=== PATIENT | male | born 1960 | race Two or more races ===

== ENCOUNTER 2022-07-07 19:33 | Emergency (ER) | payer MEDICAID, OTHER ==
[~2022-07-07] VITALS: Ht 188 cm; Wt 140.9 kg
[2022-07-07 20:02] VITALS: BP 149/101
[2022-07-07] MEDS ORDERED: ASPirin 325 MG TAB PO ONE (20:15)
[2022-07-07] MEDS ORDERED: IPRATROPIUM BROM 0.5 MG/2.5ML INH SOL NEB ONE (20:15)
[2022-07-07] MEDS ORDERED: DexAMETHasone INJECTION 10 MG in D5W 5% 50 ML IV ONE (20:15)
[2022-07-07] MEDS ORDERED: ALBUTEROL SULF 2.5 MG/0.5ML(0.5%) NEB SOLN NEB ONE (20:15)
[2022-07-07 21:11] LABS: Albumin 3.5 g/dL (3.4-5.0); Calcium 8.9 mg/dL (8.5-10.1); Potassium 4.1 mmol/L (3.5-5.1)
[2022-07-07 21:14] LABS: BUN/Creatinine Ratio 10.9; Bilirubin, Total 0.7 mg/dL (0.2-1.0); Total Protein 7.5 g/dL (6.4-8.2)
[2022-07-07 21:24] LABS: Basophils # (auto) 0.1 10 ^3/uL (0-0.2); Basophils % (auto) 1.9 % (0.0-2.0); Eosinophils # (auto) 0.1 10 ^3/uL (0-0.8); Eosinophils % (auto) 1.1 % (0.0-7.0); Hematocrit 52.2 % (41.0-53.0); Hemoglobin 16.7 g/dL (13.5-17.5); Lymphocytes # (auto) 1.2 10 ^3/uL (0.4-5.4); Lymphocytes % (auto) 15.4 % (10.0-50.0); Mean Corpuscular Hemoglobin 27.9 pg (28.0-32.0); Mean Corpuscular Hgb Conc. 31.9 g/dL (32.0-36.0); Mean Corpuscular Volume 87.4 fL (80.0-100.0); Monocytes # (auto) 0.5 10 ^3/uL (0-1.3); Monocytes % (auto) 6.8 % (0.0-12.0); Neutrophils # (auto) 5.9 10 ^3/uL (1.6-8.6); Neutrophils % (auto) 74.8 % (37.0-80.0); Nucleated Red Blood Cells % 0.2 %; Red Blood Cells 5.98 10^6/uL (4.5-5.90); Red Cell Distribution Width 15.1 % (11.8-14.3); White Blood Cell 7.8 10^3/uL (4.4-10.8)
[2022-07-08] MEDS ORDERED: OSEL75CA5 PO (01:43)
[2022-07-08] MEDS ORDERED: OSELTAMIVIR 75 MG CAP PO ONE (01:45)
== END 2022-07-08 04:17 | disposition home or self-care (01) ==
LOC: ER 19:33
DX: J10.1 Influenza due to other identified influenza virus with other respiratory manifestations (principal); J44.9 Chronic obstructive pulmonary disease, unspecified; E78.5 Hyperlipidemia, unspecified; I10 Essential (primary) hypertension; Z20.822 Contact with and (suspected) exposure to COVID-19
CPT/HCPCS: 36415; 71045; 80053; 83605; 83735; 83880; 84443; 84484; 85025; 87426; 87804; 93005; 94640; 99285; J1100; J7060; J7644

== ENCOUNTER 2025-08-25 15:22 | Inpatient (IN) | payer MEDICAID ==
[~2025-08-25] VITALS: Ht 188 cm; Wt 129.6 kg
[~2025-08-25 15:22] MED LIST: OSEL75CA5 PO
--- NOTE | 2025-08-25 15:37 | ED.PDOC ---
HPI Comments 65 year old male with PMHx COPD, HTN, HLD, lymphoma, presents to the ED with a chief complaint of chest pain onset 1 day. Patient states he has been experiencing Lt sided chest pain as well as shortness of breath, cough, fever, nausea/vomiting for the past day. Upon ED arrival, BP was 142/98, temperature 99.3 F. Patient describes chest pain as a pressure sensation, rates pain 7/10. Denies hematemesis, dizziness, headache, blurred vision, diarrhea, abdominal pain, dysuria, hematuria. No other symptoms or modifying factors present at this time. Chief Complaint: Chest Pain Time Seen by MD: 15:30 Primary Care Provider: NONE Reviewed Notes: Medications, Allergies Allergies: Coded Allergies: NO KNOWN ALLERGIES (Unverified , 07/08/22) Home Meds Active Scripts Oseltamivir Phosphate (Tamiflu) 75 Mg Cap, 1 CAP PO BID for 5 Days, #10 CAP Prov:LETA BRITT DO 07/08/22 Information Source: Patient, Relative Mode of Arrival: Wheelchair Severity: Moderate Timing: Days Duration: Since onset Prehospital treatment: None Location: Chest (L) Radiation: No Radiation Quality: Pressure Onset: At Rest Cardiac Risk Factors: Hyperlipidemia, HTN PE Risk Factors: None History of: None Modifying Factors: Nothing Associated Signs and Symptoms: SOB, N/V Past Medical History PAST MEDICAL HISTORY: Cancer, COPD, High Lipids, HTN Surgical History: Cholecystectomy Surgical History (Other): RT knee surgery Family History Family History: Reviewed,noncontributory to illness, No family hx of Cancer, No family hx of DM, No family hx of Heart jossy, No family hx of HTN, No family hx ofKidney jossy, No family hx of Liver jossy, No family hx of Lung jossy, No family hx of Stroke Social History Smoker: Non-Smoker Alcohol: Denies ETOH Use Drugs: Denies Drug Use Lives In: Home Constitutional: reports: fever; denies: chills, diaphoresis, fatigue, malaise, sweats, weakness, others EENTM: denies: blurred vision, double vision, ear bleeding, ear discharge, ear drainage, ear pain, ear ringing, eye pain, eye redness, hearing loss, mouth pain, mouth swelling, nasal discharge, nose bleeding, nose congestion, nose pain, photophobia, tearing, throat pain, throat swelling, voice changes, others Respiratory: reports: cough, shortness of breath; denies: hemoptysis, orthopn ea, SOB at rest, SOB with excertion, stridor, wheezing, others Cardiovascular: reports: chest pain; denies: dizzy spells, diaphoresis, Dyspnea on exertion, edema, irregular heart beat, left arm pain, lightheadedness, palpitations, PND, syncope, others Gastrointestinal: reports: nausea, vomiting; denies: abdomen distended, abdominal pain, blood streaked bowels, constipated, diarrhea, dysphagia, difficulty swallowing, hematemesis, melena, poor appetite, poor fluid intake, rectal bleeding, rectal pain, others Genitourinary: denies: burning, dysuria, flank pain, frequency, hematuria, incontinence, penile discharge, penile sore, pain, testicle pain, testicle swelling, urgency, others Neurological: denies: dizziness, fainting, headache, left sided numbness, left sided weakness, numbness, paresthesia, pre-existing deficit, right sided numbness, right sided weakness, seizure, speech problems, tingling, tremors, weakness, others Musculoskeletal: denies: back pain, gout, joint pain, joint swelling, muscle pain, muscle stiffness, neck pain, others Integumetry: denies: bruises, change in color, change in hair/nails, dryness, laceration, lesions, lumps, rash, wounds, others Allergic/Immunocompromised: denies: Difficulty Healing, Frequent Infections, Hives, Itching, others Hematologic/Lymphatic: denies: anemia, blood clots, easy bleeding, easy bruising, swollen glands, others Endocrine: denies: excessive hunger, excessive sweating, excessive thirst, excessive urination, flushing, intolerance to cold, intolerance to heat, unexplained weight gain, unexplained weight loss, others Psychiatric: denies: anxiety, bipolar disorder, depression, hopeless, panic disorder, schizophrenia, sleepless, suicidal, others All Other Systems: Reviewed and Negative Physical Exam General Appearance: Moderate Distress HEENT: Normal ENT Inspection, Pharynx Normal, TMs Normal Neck: Full Range of Motion, Non-Tender, Normal, Normal Inspection Respiratory: Chest Non-Tender, Lungs Clear, No Accessory Muscle Use, No Respiratory Distress, Normal Breath Sounds Cardiovascular: No Edema, No JVD, No Murmur, No Gallop, Normal Peripheral Pulses, Regular Rate/Rhythm Breast Exam: Deferred Gastrointestinal: No Organomegaly, Non Tender, No Pulsatile Mass, Normal Bowel Sounds, Soft Genitalia: Deferred Pelvic: Deferred Rectal: Deferred Extremities: No calf tenderness, Normal capillary refill, Pedal edema Musculoskeletal : Apperance: Normal Neurologic: Alert, 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 Was a procedure done?: No CP Differential Dx Differential Diagnosis: Angina, RI, Pulmonary Embolus Differential Diagnosis: CHF Differential Diagnosis: Myocardial Infarction, Pericarditis X-Ray, Labs, Meds, VS Vital Signs Date Time Temp Pulse Resp B/P (MAP) Pulse Ox O2 Delivery O2 Flow Rate FiO2 08/25/25 16:23 91 08/25/25 15:37 95 08/25/25 15:35 92 Nasal Cannula* 2 28 08/25/25 15:28 95 08/25/25 15:27 99.3 100 18 142/98 88 99.3 Lab Test 08/25/25 16:59 08/25/25 16:00 08/25/25 15:43 Range/Units Troponin I High Sensitivity Pending 8 </=54 ng/L Lactic Acid Level 1.1 0.4-2.0 mmol/L White Blood Count 18.9 H 4.4-10.8 10^3/uL Red Blood Count 5.84 4.5-5.90 10^6/uL Hemoglobin 16.4 13.5-17.5 g/dL Hematocrit 50.4 41.0-53.0 % Mean Corpuscular Volume 86.4 80.0-100.0 fL Mean Corpuscular Hemoglobin 28.2 28.0-32.0 pg Mean Corpuscular Hemoglobin Concent 32.6 32.0-36.0 g/dL Red Cell Distribution Width 16.5 H 11.8-14.3 % Platelet Count 149 140-450 10^3/uL Mean Platelet Volume 9.1 6.9-10.8 fL Neutrophils (%) (Auto) 89.9 H 37.0-80.0 % Lymphocytes (%) (Auto) 4.7 L 10.0-50.0 % Monocytes (%) (Auto) 5.2 0.0-12.0 % Eosinophils (%) (Auto) 0.0 0.0-7.0 % Basophils (%) (Auto) 0.2 0.0-2.0 % Neutrophils # (Auto) 17.0 H 1.6-8.6 10 ^3/uL Lymphocytes # (Auto) 0.9 0.4-5.4 10 ^3/uL Monocytes # (Auto) 1.0 0-1.3 10 ^3/uL Eosinophils # (Auto) 0 0-0.8 10 ^3/uL Basophils # (Auto) 0 0-0.2 10 ^3/uL Nucleated Red Blood Cells 0.0 % Sodium Level 137 136-145 mmol/L Potassium Level 4.3 3.5-5.1 mmol/L Chloride Level 98 98-107 mmol/L Carbon Dioxide Level 28 20-31 mmol/L Anion Gap 11 5-15 Blood Urea Nitrogen 12 9-23 mg/dL Creatinine 0.82 0.700-1.30 mg/dL Glomerular Filtration Rate Calc 98 >90 mL/min BUN/Creatinine Ratio 14.6 10.0-20.0 Serum Glucose 84 74-106 mg/dL Calcium Level 9.4 8.7-10.4 mg/dL B-Type Natriuretic Peptide 43.61 0-100 pg/mL The patient's CBC shows an elevated white blood cell count of 18.9 The rest of the CBC is within normal limits The chemistry panel is within normal limits The BNP is 43.61 The patient was given Lasix 40 mg IV push The 1st troponin level is negative The lactic acid level is 1.1 Chest x-ray shows: IMPRESSION: 1. Minimal change from 07/07/2022 with persistent interstitial prominence. The patient is being admitted at this time A cardiology consult will be obtained. Images Reviewed?: Images reviewed and evaluated by me Time of 1ST Reevaluation: 16:00 Reevaluation 1ST: Unchanged Patient Education/Counseling: Diagnosis, Treatment, Prognosis Family Education/Counseling: Diagnosis, Treatment, Prognosis SEPSIS Sepsis Screen Physician Orders Electrocardigram (08/25/25 15:24) Troponin-I Hs (08/25/25 16:24) Troponin-I Hs (08/25/25 18:24) Electrocardigram (08/25/25 16:24) Electrocardigram (08/25/25 18:24) Chest Portable (08/25/25 15:37) Heplock Iv (08/25/25 15:37) Communications Senior Associate (08/25/25 15:37) Blood Pressure (08/25/25 15:37) Pulse Oximetry (08/25/25 15:37) Urinalysis (08/25/25 15:37) Blood Culture (08/25/25 15:37) Furosemide Injection (Lasix Injection) (08/25/25 17:15) Vital Signs Date Time Temp Pulse Resp B/P (MAP) Pulse Ox O2 Delivery O2 Flow Rate FiO2 08/25/25 16:23 91 08/25/25 15:37 95 08/25/25 15:35 92 Nasal Cannula* 2 28 08/25/25 15:28 95 08/25/25 15:27 99.3 100 18 142/98 88 99.3 Laboratory Tests Test 08/25/25 15:43 08/25/25 16:00 White Blood Count 18.9 10^3/uL (4.4-10.8) H Lactic Acid Level 1.1 mmol/L (0.4-2.0) Departure 1 Departure Time of Disposition: 17:14 Impression: Primary Impression: Acute on chronic diastolic heart failure Disposition: 09 ADMITTED INPATIENT Admit to: [facility] Condition: Fair Critical Care Note Critical Care Time?: Yes (45 min-critical care time only) Stability Stability form required: Yes Unstable for transfer: Telemetry monitoring (Telemetry monitoring required), ED Physician Assesment (Clinical assesment) Heart Score Heart Score: Heart Score Response (Comments) Value History Moderate Suspicious 1 EKG Repolarization Disturb 1 Age 45-64 1 Risk Factors 1 or 2 risk factors 1 Troponin Normal limit 0 Total 4 I personally scribed for JACINTO DUBON MD ([email or web address]) on 08/25/25 at 15:37. Electronically submitted by Kayleigh Walter ([email or web address]). JACINTO DUBON MD Aug 25, 2025 15:37
[2025-08-25 16:03] LABS: Mean Corpuscular Volume 86.4 fL (80.0-100.0)
[2025-08-25 16:05] LABS: Potassium 4.3 mmol/L (3.5-5.1); Sodium 137 mmol/L (136-145)
[2025-08-25 16:06] LABS: Anion Gap 11 (5-15); Calcium 9.4 mg/dL (8.7-10.4); Carbon Dioxide 28 mmol/L (20-31)
[2025-08-25 16:07] LABS: Chloride 98 mmol/L (98-107); Hematocrit 50.4 % (41.0-53.0); Hemoglobin 16.4 g/dL (13.5-17.5); Mean Corpuscular Hemoglobin 28.2 pg (28.0-32.0); Nucleated Red Blood Cells % 0.0 %
[2025-08-25 16:11] LABS: BUN/Creatinine Ratio 14.6 (10.0-20.0); Blood Urea Nitrogen 12 mg/dL (9-23); Glucose 84 mg/dL (74-106)
--- NOTE | 2025-08-25 16:59 | DVH ---
CHEST RADIOGRAPH Indication: sob Technique: Single frontal view of the chest was obtained Comparison: CHEST PORTABLE on DOS: 07/07/22, CXRP on DOS: 07/07/22 FINDINGS: Lines and Tubes: None Lungs: No focal consolidation. Prominence of the central interstitial there are findings of bibasilar interstitial prominence atelectasis Pleura: No effusion. No pneumothorax. Cardiomediastinal contours: Unremarkable Bones: No acute osseous abnormality. IMPRESSION: 1. Minimal change from 07/07/2022 with persistent interstitial prominence.
--- NOTE | 2025-08-25 20:49 | DVHHPRES ---
History of Present Illness Resident Creating Document: JAI PHELAN RESIDENT History of Present Illness This is a 65-year-old male with past medical history non-Hodgkin lymphoma in remission, hypertension, hyperlipidemia, COPD, asthma, GERD, presented to the ER with chief complain of chest pain and shortness of breaths. Patient reports that the chest pain and shortness of breaths started yesterday, pain is described as tightness in the substernal area, 10/10, radiating to left arm. Patient has worsening difficulty in breathing, since yesterday he has shortness of breaths while resting. He complains of associated fever, chills, cough with productive yellow sputum. He also complains of headache, nausea and has vomited 1 time, vomitus had food content. PMHx: Non-Hodgkin lymphoma in remission, hypertension, hyperlipidemia, COPD class E, asthma, GERD PSHx: Right knee cartilage repair surgery Social history: Denies smoking, alcohol, recreational drug use. Lives in house with , full code, next to kin is spouse. Home medication: Losartan, gabapentin, [place] Allergic history: No known allergies The patient was examined at bedside today. Patient is ill-appearing, and is admitted for further evaluation and management. Review of Systems Review of Systems ROS: Constitutional: Fever, chills, myalgia HEENT: Denies changes in vision and hearing. Respiratory: Shortness of breaths, chest pain and productive cough Cardiovascular: Denies chest discomfort or palpitations GI: Nausea, vomiting. Denies abdominal pain and diarrhea. : Denies dysuria and urinary frequency. Musculoskeletal: Denies joint pain Skin: Denies rash and pruritus. Neurological: Headache. Denies dizziness, vision or hearing problems Allergies: Coded Allergies: NO KNOWN ALLERGIES (Unverified , 07/08/22) Exam Vital Signs Vital Signs Date Time Temp Pulse Resp B/P (MAP) Pulse Ox O2 Delivery O2 Flow Rate FiO2 08/25/25 18:27 89 08/25/25 15:35 92 Nasal Cannula* 2 28 08/25/25 15:27 99.3 18 142/98 99.3 Exam General: Patient alert and oriented in person, place and time. Patient following commands. HEENT: Normocephalic, atraumatic, moist mucous membranes Respiratory/pulmonary: Wheeze in bilateral lung cruz Cardiovascular: Distant heart sounds Abdomen: Abdomen distended, there is no pain to palpation in any of the abdominal quadrants, no palpable masses. Extremities: Grade 2 bilateral pitting edema Peripheral Pulses: 3+ Radial (R). 3+ Radial (L). 3+ Dorsalis pedis (R). 3+ Dorsalis pedis(L) Skin: No rashes or pruritus, there is no sacral edema present at this time. Neurological: Intact cranial nerves with no focal neurologic deficits Labs/Xrays Labs Test 08/25/25 16:59 08/25/25 16:00 08/25/25 15:43 Range/Units Troponin I High Sensitivity 8 </=54 ng/L Lactic Acid Level 1.1 0.4-2.0 mmol/L White Blood Count 18.9 H 4.4-10.8 10^3/uL Red Blood Count 5.84 4.5-5.90 10^6/uL Hemoglobin 16.4 13.5-17.5 g/dL Hematocrit 50.4 41.0-53.0 % Mean Corpuscular Volume 86.4 80.0-100.0 fL Mean Corpuscular Hemoglobin 28.2 28.0-32.0 pg Mean Corpuscular Hemoglobin Concent 32.6 32.0-36.0 g/dL Red Cell Distribution Width 16.5 H 11.8-14.3 % Platelet Count 149 140-450 10^3/uL Mean Platelet Volume 9.1 6.9-10.8 fL Neutrophils (%) (Auto) 89.9 H 37.0-80.0 % Lymphocytes (%) (Auto) 4.7 L 10.0-50.0 % Monocytes (%) (Auto) 5.2 0.0-12.0 % Eosinophils (%) (Auto) 0.0 0.0-7.0 % Basophils (%) (Auto) 0.2 0.0-2.0 % Neutrophils # (Auto) 17.0 H 1.6-8.6 10 ^3/uL Lymphocytes # (Auto) 0.9 0.4-5.4 10 ^3/uL Monocytes # (Auto) 1.0 0-1.3 10 ^3/uL Eosinophils # (Auto) 0 0-0.8 10 ^3/uL Basophils # (Auto) 0 0-0.2 10 ^3/uL Nucleated Red Blood Cells 0.0 % Sodium Level 137 136-145 mmol/L Potassium Level 4.3 3.5-5.1 mmol/L Chloride Level 98 98-107 mmol/L Carbon Dioxide Level 28 20-31 mmol/L Anion Gap 11 5-15 Blood Urea Nitrogen 12 9-23 mg/dL Creatinine 0.82 0.700-1.30 mg/dL Glomerular Filtration Rate Calc 98 >90 mL/min BUN/Creatinine Ratio 14.6 10.0-20.0 Serum Glucose 84 74-106 mg/dL Calcium Level 9.4 8.7-10.4 mg/dL B-Type Natriuretic Peptide 43.61 0-100 pg/mL SEPSIS Sepsis Screen Date sepsis recognized/suspect: Aug 25, 2025 Time Sepsis recognized/suspect: 1529 Recent Procedure: No On Antibiotic Therapy: No Respiratory Rate >20: No Heart Rate >90: No Temp<36 C (96.8 F) or >38.3 C: No SBP <90 or MAP <65 mmHG: No New Acute Mental Status Change: No Is the patient on CPAP, BIPAP,: No Physician Orders Electrocardigram (08/25/25 15:24) Electrocardigram (08/25/25 16:24) Electrocardigram (08/25/25 18:24) Chest Portable (08/25/25 15:37) Heplock Iv (08/25/25 15:37) Food Service Technician (08/25/25 15:37) Blood Pressure (08/25/25 15:37) Pulse Oximetry (08/25/25 15:37) Urinalysis (08/25/25 15:37) Blood Culture (08/25/25 15:37) Vital Signs Date Time Temp Pulse Resp B/P (MAP) Pulse Ox O2 Delivery O2 Flow Rate FiO2 08/25/25 18:27 89 08/25/25 16:23 91 08/25/25 15:37 95 08/25/25 15:35 92 Nasal Cannula* 2 28 08/25/25 15:28 95 08/25/25 15:27 99.3 100 18 142/98 88 99.3 Laboratory Tests Test 08/25/25 15:43 08/25/25 16:00 White Blood Count 18.9 10^3/uL (4.4-10.8) H Lactic Acid Level 1.1 mmol/L (0.4-2.0) Assessment/Plan Assessment/Plan Sepsis due to Gram-positive, Gram-negative pneumonia CXR shows Minimal change from 07/07/2022 with persistent interstitial prominence. Started on IV ceftriaxone, azithromycin Ordered sputum culture and blood culture Acute COPD exacerbation Oxygen support 2 L, same as home oxygen Nebulization therapy with levalbuterol and ipratropium Prednisolone 40 mg IV b.i.d. daily Antibiotic therapy with azithromycin, ceftriaxone Acute exacerbation of heart failure Echo ordered BNP 43 (could be a false negative due to obesity) IV furosemide 20 mg b.i.d. and strict I&O Obesity class 2 BMI 36.8 Counseled on lifestyle and diet Hypertension P.o. losartan Hyperlipidemia P.o. atorvastatin History of GERD IV Protonix 40 mg daily Non-Hodgkin's lymphoma in remission DIET: Cardiac DVT PROPHYLAXIS: Lovenox GI PROPHYLAXIS: Protonix CODE STATUS: Goals of care discussed with patient at bedside for more than 35 minutes. Full code DISPOSITION: Med/surge Patient's status and plan discussed with the patient. Case discussed with Dr. Godfrey Plan discussed with: Patient, Other (Nurses) Date of Service: Aug 25, 2025 Billing Provider: DEAN NEELY MD Common Visit Codes: [id number] INP/OBS CARE (HIGH) Secondary Visit Codes: [id number] CARE PLAN 30 MINUTES JAI PHELAN RESIDENT Aug 25, 2025 20:49 KIZZY SWIFT RESIDENT Aug 26, 2025 02:26
[2025-08-25] MEDS ORDERED: OSELTAMIVIR 75 MG CAP PO ONE (21:00)
[2025-08-25] MEDS ORDERED: MORPHINE SULFATE INJ 2 MG/ml SYRG IV PRN (21:00)
[2025-08-25] MEDS: FUROSEMIDE 40 MG/4 ML VIAL IV ONE (21:00)
[2025-08-25 21:13] VITALS: PULSE 92; RESP 16; O2SAT 98
[2025-08-25 21:16] LABS: Lipase 32.0 U/L (12-53)
[2025-08-25 21:17] LABS: Magnesium 1.7 mg/dL (1.6-2.6)
[2025-08-25 21:27] LABS: Cholesterol 169.0 mg/dL (< 200); HDL Cholesterol 51.0 mg/dL (40-59); Triglycerides 103.0 mg/dL (< 150)
[2025-08-25] MEDS ORDERED: OSELTAMIVIR 75 MG CAP PO SCH (22:00)
[2025-08-25 22:59] LABS: INR 1.14 (0.9-1.15); Partial Thromboplastin Time 30.4 SEC (24.5-34.5); Prothrombin Time 11.9 sec (9.3-11.8)
[2025-08-25 23:01] LABS: Base Excess 0.4 mmol/L (-2.0-3.0)
[2025-08-25] MEDS: ERGOCALCIFEROL 50,000 UNIT(1.25MG) CAP PO SCH (23:56)
[2025-08-25] MEDS: GABAPENTIN 300 MG CAP PO ONE (23:56)
[2025-08-25] MEDS: ENOXAPARIN SOD 40 MG/0.4 ML SYRINGE SC SCH (23:59)
[2025-08-25] MEDS: LOSARTAN POTASSIUM 25 MG TAB PO ONE (23:59)
[2025-08-26] VITALS (11 sets, daily range): BP systolic 130–140; BP diastolic 79–82; PULSE 75–94; RESP 16–20; TEMP 97.9–99.4; O2SAT 91–99
[2025-08-26] MEDS: LEVALBUTEROL HCL 1.25 MG/3 ML NEB NEB SCH
[2025-08-26] MEDS: methylPREDNISolone SOD SUCC 40 MG/ML VL ONE (01:31)
[2025-08-26] MEDS: PANTOPRAZOLE 40 MG/10 ML VIAL INJ IV ONE (01:36)
[2025-08-26] MEDS: methylPREDNISolone SOD SUCC 40 MG/ML VL IV SCH ×2 (01:37→09:47)
[2025-08-26 01:45] LABS: COVID19 ANTIGEN SOFIA FIA NEGATIVE (NEGATIVE)
[2025-08-26] MEDS: AZITHROMYCIN 500MG/ 250ML 250 ML IV ONE (02:39)
--- NOTE | 2025-08-26 05:37 | ECG ---
[facility] Test Date: 2025-08-25 Test Time: 22:10:28 Pat Name: SHERRON CHAMPAGNE Department: [facility] ED Room: [address] [place] [address] A Gender: M Nurse Research: KRISS : 1960 Requested By: JACINTO DUBON Order Number: [id number] Reading MD: Abram Perez Measurements Intervals [place] Rate: 91 P: 57 TX: 176 QRS: -56 QRSD: 139 T: 29 QT: 364 QTc: 448 Interpretive Statements Sinus rhythm Ventricular premature complex Probable left atrial enlargement RBBB and LAFB Baseline wander in lead(s) V1 Electronically Signed On 08-26-2025 15:25:01 PDT by Abram Perez Please click the below link to view image of tracing.
[2025-08-26] MEDS: IPRATROPIUM BROM 0.5 MG/2.5ML INH SOL NEB SCH (06:21)
[2025-08-26 06:41] LABS: Hematocrit 49.0 % (41.0-53.0); Hemoglobin 16.0 g/dL (13.5-17.5); Mean Corpuscular Hemoglobin 28.1 pg (28.0-32.0); Mean Corpuscular Volume 86.1 fL (80.0-100.0); Nucleated Red Blood Cells % 0.1 %
[2025-08-26 07:00] LABS: Urine Protein, UAD TRACE (Negative)
[2025-08-26 07:03] LABS: Alanine Aminotransferase 17 U/L (7-40); Albumin 4.3 g/dL (3.2-4.8); Alkaline Phosphatase 84 U/L (46-116); Anion Gap 11 (5-15); BUN/Creatinine Ratio 13.4 (10.0-20.0); Blood Urea Nitrogen 16 mg/dL (9-23); Calcium 9.4 mg/dL (8.7-10.4); Carbon Dioxide 28 mmol/L (20-31); Glucose 102 mg/dL (74-106); Potassium 4.4 mmol/L (3.5-5.1)
[2025-08-26 07:05] LABS: Bilirubin, Total 1.7 mg/dL (0.2-1.0); Chloride 96 mmol/L (98-107); Sodium 135 mmol/L (136-145); Total Protein 8.2 g/dL (5.7-8.2)
[2025-08-26 07:17] LABS: Amphetamine Screen, Urine Neg (NEGATIVE); Barbiturate Scree,Urine Neg (NEGATIVE); Benzodiazephine Screen, Urine Neg (NEGATIVE); Cannabinoid Screen, Urine Neg (NEGATIVE); Cocaine Screen, Urine Neg (NEGATIVE); Opiate Scree,Urine Neg (NEGATIVE); Phencyclidine Screen, Urine Neg (NEGATIVE)
[2025-08-26] MEDS: HYDROcodone-ACET 5/325MG TAB PO PRN (08:14)
[2025-08-26] MEDS ORDERED: OSELTAMIVIR 75 MG CAP PO SCH (09:00)
[2025-08-26] MEDS: SODIUM CHLORIDE 0.9% 1,000 ML IV SCH (09:45)
[2025-08-26] MEDS: GABAPENTIN 300 MG CAP PO SCH (09:46)
[2025-08-26] MEDS: PANTOPRAZOLE 40 MG/10 ML VIAL INJ IV SCH (09:47)
[2025-08-26] MEDS: LOSARTAN POTASSIUM 25 MG TAB PO SCH (09:49)
[2025-08-26] MEDS: FUROSEMIDE 20 MG/2 ML VIAL IV SCH (09:50)
[2025-08-26] MEDS: AZITHROMYCIN 500MG/ 250ML 250 ML IV SCH (09:51)
[2025-08-26] MEDS: SODIUM CHLORIDE 0.9% 1,000 ML IV ONE (10:07)
--- NOTE | 2025-08-26 11:56 | ECG ---
[facility] Test Date: 2025-08-25 Test Time: 16:23:02 Pat Name: SHERRON CHAMPAGNE Department: ED Room: [address] [place] [address] A Gender: M Director Of Casework Department: alexis : 1960 Requested By: JACINTO DUBON Order Number: [id number] Reading MD: Abram Perez Measurements Intervals [place] Rate: 91 P: 66 NM: 168 QRS: -108 QRSD: 139 T: 27 QT: 346 QTc: 426 Interpretive Statements Sinus rhythm Right bundle branch block Inferior infarct, old Baseline wander in lead(s) V5 Electronically Signed On 08-26-2025 15:24:39 PDT by Abram Perez Please click the below link to view image of tracing.
--- NOTE | 2025-08-26 11:56 | ECG ---
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
--- NOTE | 2025-08-26 15:44 | DVHPNRES ---
Progress Note Date Seen: Aug 26, 2025 Resident Creating Document: ELDON CORRALES RESIDENT Medical Necessity Reason Pt with a Central, PICC or Fol: No Subjective Review of Systems This is a 65-year-old male with past medical history non-Hodgkin lymphoma in remission, hypertension, hyperlipidemia, COPD, asthma, GERD, presented to the ER with chief complain of chest pain and shortness of breaths. Patient reports that the chest pain and shortness of breaths started yesterday, pain is described as tightness in the substernal area, 08/22, radiating to left arm. Patient has worsening difficulty in breathing, since yesterday he has shortness of breaths while resting. He complains of associated fever, chills, cough with productive yellow sputum. He also complains of headache, nausea and has vomited 1 time, vomitus had food content. PMHx: Non-Hodgkin lymphoma in remission, hypertension, hyperlipidemia, COPD class E, asthma, GERD PSHx: Right knee cartilage repair surgery Social history: Denies smoking, alcohol, recreational drug use. Lives in house with , full code, next to kin is spouse. Home medication: Losartan, gabapentin, [place] Allergic history: No known allergies Patient was seen today at bedside, labs and chart reviewed. Patient reported feeling better today, patient is on IV antibiotic ceftriaxone and azithromycin, tolerating well. No leg edema. Preliminary blood culture revealed Gram- positive cocci in pairs and Gram-positive cocci in cluster. ordered vancomycin. Objective vital signs Vital Sign Date Time Temp Pulse Resp B/P (MAP) Pulse Ox O2 Delivery O2 Flow Rate FiO2 08/26/25 12:00 74 13 116/65 (82) 93 08/26/25 11:40 Nasal Cannula* 5 40 08/26/25 08:00 98.6 98.6 medications Current Medications Medications Dose Ordered Sig/Kevon Route Start Time Stop Time Status Last Admin Dose Admin Acetaminophen/ Hydrocodone Bitart 1 tab Q4HP PRN PO 08/25/25 21:00 08/26/25 08:14 1 TAB Enoxaparin Sodium 40 mg DAILY SC 08/25/25 21:00 08/26/25 09:46 40 MG Morphine Sulfate 2 mg Q30M PRN IV 08/25/25 21:00 Losartan Potassium 25 mg DAILY PO 08/26/25 10:00 08/26/25 09:49 25 MG Gabapentin 300 mg DAILY PO 08/26/25 10:00 08/26/25 09:46 300 MG Pantoprazole Sodium 40 mg DAILY IV 08/26/25 10:00 08/26/25 09:47 40 MG Levalbuterol HCl 1.25 mg Q6HR NEB 08/26/25 00:00 08/26/25 11:38 1.25 MG Ipratropium [place] 0.5 mg Q6HWA NEB 08/26/25 06:00 08/26/25 11:38 0.5 MG Azithromycin 250 ml @ 125 mls/hr DAILY IV 08/26/25 10:00 08/26/25 09:51 125 MLS/HR Methylprednisolone Sodium Succinate 40 mg DAILY IV 08/26/25 10:00 08/26/25 09:47 40 MG Ceftriaxone Sodium 50 ml @ 100 mls/hr DAILY@09 IV 08/26/25 09:00 08/26/25 09:45 100 MLS/HR Oseltamivir Phosphate 75 mg Q12HR PO 08/25/25 22:00 08/30/25 21:59 UNV Ergocalciferol 50,000 unit Q7D PO 08/25/25 22:15 08/25/25 23:56 50,000 UNIT Examination General examination- awake, alert, oriented HEENT- PEERLA, no acute nasal discharge Cardiovascular- S1-S2 audible, rate and rhythm regular, no murmur Respiratory- bilateral lung wheezing, lung crackles lower lung zone bilaterally+, , no wheeze or rhonchi Gastrointestinal-nontender, bowel sound+. Nondistended Musculoskeletal-no acute joint swelling or tenderness or redness Lower extremity- no leg edema Neurological- cranial nerves intact, no acute dysarthria or dysphagia Psychiatry- denies depression or SI or HI Skin- no acute rash or purpura laboratory and microbiology Laboratory Tests 08/26/25 06:15 Test 08/26/25 06:15 Range/Units Serum Glucose 102 74-106 mg/dL Microbiology Date/Time Source Procedure Growth Status 08/25/25 15:50 Blood Blood Culture - Preliminary Resulted Problem List/Assessment/Plan Problem List/Assessment/Plan Assessment/Plan #Sepsis due to Gram-positive, Gram-negative pneumonia -CXR -bilateral lower lung haziness -continue IV ceftriaxone and vancomycin as prescribed - sputum culture pending - blood culture- Preliminary blood culture revealed Gram-positive cocci in pairs and Gram-positive cocci in cluster. #Acute COPD exacerbation likely due to pneumonia -Nebulization therapy with levalbuterol and ipratropium -methylprednisolone 40 mg IV b.i.d. daily -continue ceftriaxone and vancomycin as prescribed # ruled out acute heart failure #Obesity class 2 -BMI 36.8 Counseled on lifestyle and diet #Hypertension -P.O. Losartan 25 mg p.o. daily #Hyperlipidemia -atorvastatin 20 mg p.o. daily #History of GERD -Protonix 40 mg daily #Non-Hodgkin's lymphoma in remission -please follow up outpatient with the Oncology Goals of care, Code status full code; discussed with >15 minutes PUD prophylaxis: Pantoprazole DVT prophylaxis: Lovenox Plan discussed with Dr. Murphy , nursing staff, Total time spent on patient evaluation, chart review, assessment and plan, discussion discussion >35 minutes Plan discussed with: Patient, Other (RN) Date of Service: Aug 26, 2025 Billing Provider: NAOMI MURPHY MD Common Visit Codes: [id number] INP/OBS CARE(HIGH) ELDON CORRALES RESIDENT Aug 26, 2025 15:44 NAOMI MURPHY MD Sep 10, 2025 20:41
[2025-08-26] MEDS ORDERED: VANCOMYCIN PER PHARMACY 0 MG IV SCH (15:45)
[2025-08-26] MEDS ORDERED: VANCOMYCIN HCL 1000 MG VL IR ONE (15:45)
[2025-08-26] MEDS: VANCOMYCIN 1GM/250ML KIT 250 ML IV SCH ×2 (20:28→21:45)
[2025-08-27] VITALS (18 sets, daily range): BP systolic 125–151; BP diastolic 71–81; PULSE 82–110; RESP 16–24; TEMP 97–98.7; O2SAT 93–100
[2025-08-27 06:23] LABS: Hematocrit 45.9 % (41.0-53.0); Hemoglobin 15.0 g/dL (13.5-17.5); Mean Corpuscular Hemoglobin 27.4 pg (28.0-32.0); Mean Corpuscular Volume 84.2 fL (80.0-100.0); Nucleated Red Blood Cells % 0.0 %
[2025-08-27 06:37] LABS: Alanine Aminotransferase 13 U/L (7-40); Alkaline Phosphatase 77 U/L (46-116); Anion Gap 11 (5-15); BUN/Creatinine Ratio 20.9 (10.0-20.0); Calcium 9.8 mg/dL (8.7-10.4); Magnesium 2.2 mg/dL (1.6-2.6); Potassium 3.9 mmol/L (3.5-5.1); Total Protein 8.0 g/dL (5.7-8.2)
[2025-08-27 06:38] LABS: Albumin 4.1 g/dL (3.2-4.8)
[2025-08-27 06:39] LABS: Bilirubin, Total 0.5 mg/dL (0.2-1.0)
[2025-08-27 06:40] LABS: Blood Urea Nitrogen 27 mg/dL (9-23); Carbon Dioxide 31 mmol/L (20-31); Chloride 93 mmol/L (98-107); Glucose 150 mg/dL (74-106); Sodium 135 mmol/L (136-145)
--- NOTE | 2025-08-27 09:58 | DVHPNRES ---
Progress Note Date Seen: Aug 27, 2025 Resident Creating Document: ELDON CORRALES RESIDENT Medical Necessity Reason Pt with a Central, PICC or Fol: No Subjective Review of Systems This is a 65-year-old male with past medical history non-Hodgkin lymphoma in remission, hypertension, hyperlipidemia, COPD, asthma, GERD, presented to the ER with chief complain of chest pain and shortness of breaths. Patient reports that the chest pain and shortness of breaths started yesterday, pain is described as tightness in the substernal area, 08/22, radiating to left arm. Patient has worsening difficulty in breathing, since yesterday he has shortness of breaths while resting. He complains of associated fever, chills, cough with productive yellow sputum. He also complains of headache, nausea and has vomited 1 time, vomitus had food content. PMHx: Non-Hodgkin lymphoma in remission, hypertension, hyperlipidemia, COPD class E, asthma, GERD PSHx: Right knee cartilage repair surgery Social history: Denies smoking, alcohol, recreational drug use. Lives in house with , full code, next to kin is spouse. Home medication: Losartan, gabapentin, [place] Allergic history: No known allergies Patient was seen today at bedside, labs and chart reviewed. Ordered another set of blood culture today. We will continue current management. Plan is to change steroid to oral prednisolone tomorrow morning Objective vital signs Vital Sign Date Time Temp Pulse Resp B/P (MAP) Pulse Ox O2 Delivery O2 Flow Rate FiO2 08/27/25 06:24 84 18 100 08/27/25 06:16 Nasal Cannula 3.0 08/27/25 06:16 32 08/27/25 05:00 97.1 136/71 (92) 97.1 Total Intake and Output 08/26/25 08/26/25 08/27/25 15:00 23:00 07:00 Intake Total 500 ml 300 ml Output Total 300 ml Balance 500 ml 0 ml medications Current Medications Medications Dose Ordered Sig/Kevon Route Start Time Stop Time Status Last Admin Dose Admin Acetaminophen/ Hydrocodone Bitart 1 tab Q4HP PRN PO 08/25/25 21:00 08/26/25 20:25 1 TAB Enoxaparin Sodium 40 mg DAILY SC 08/25/25 21:00 08/26/25 09:46 40 MG Morphine Sulfate 2 mg Q30M PRN IV 08/25/25 21:00 Losartan Potassium 25 mg DAILY PO 08/26/25 10:00 08/26/25 09:49 25 MG Gabapentin 300 mg DAILY PO 08/26/25 10:00 08/26/25 09:46 300 MG Pantoprazole Sodium 40 mg DAILY IV 08/26/25 10:00 08/26/25 09:47 40 MG Levalbuterol HCl 1.25 mg Q6HR NEB 08/26/25 00:00 08/27/25 06:16 1.25 MG Ipratropium [place] 0.5 mg Q6HWA NEB 08/26/25 06:00 08/27/25 00:12 0.5 MG Methylprednisolone Sodium Succinate 40 mg DAILY IV 08/26/25 10:00 08/26/25 09:47 40 MG Ceftriaxone Sodium 50 ml @ 100 mls/hr DAILY@09 IV 08/26/25 09:00 08/27/25 08:40 100 MLS/HR Oseltamivir Phosphate 75 mg Q12HR PO 08/25/25 22:00 08/30/25 21:59 UNV Ergocalciferol 50,000 unit Q7D PO 08/25/25 22:15 08/25/25 23:56 50,000 UNIT Vancomycin HCl 0 ml @ 0 mls/hr UD IV 08/26/25 15:45 Azithromycin 250 ml @ 125 mls/hr DAILY IV 08/27/25 10:00 Examination General examination- awake, alert, oriented HEENT- PEERLA, no acute nasal discharge Cardiovascular- S1-S2 audible, rate and rhythm regular, no murmur Respiratory- bilateral lung wheezing+, lung crackles lower lung zone bilaterally+, Gastrointestinal-nontender, bowel sound+. Nondistended Musculoskeletal-no acute joint swelling or tenderness or redness Lower extremity- no leg edema Neurological- cranial nerves intact, no acute dysarthria or dysphagia Psychiatry- denies depression or SI or HI Skin- no acute rash or purpura laboratory and microbiology Laboratory Tests 08/27/25 05:12 Test 08/27/25 05:12 Range/Units Serum Glucose 150 H 74-106 mg/dL Microbiology Date/Time Source Procedure Growth Status 08/25/25 16:00 Blood Blood Culture - Preliminary NO GROWTH AFTER 24 HOURS OF INCUBATION. Resulted Problem List/Assessment/Plan Problem List/Assessment/Plan Assessment/Plan #Sepsis due to Gram-positive, Gram-negative pneumonia -CXR -bilateral lower lung haziness -continue IV ceftriaxone and vancomycin as prescribed - sputum culture pending - blood culture- Preliminary blood culture revealed Gram-positive cocci in pairs and Gram-positive cocci in cluster. #Acute COPD exacerbation likely due to pneumonia -Nebulization therapy with levalbuterol and ipratropium -methylprednisolone 40 mg IV b.i.d. daily -continue ceftriaxone and vancomycin as prescribed # ruled out acute heart failure #Obesity class 2 -BMI 36.8 Counseled on lifestyle and diet #Hypertension -P.O. Losartan 25 mg p.o. daily #Hyperlipidemia -atorvastatin 20 mg p.o. daily #History of GERD -Protonix 40 mg daily #Non-Hodgkin's lymphoma in remission -please follow up outpatient with the Oncology Goals of care, Code status full code; discussed with >15 minutes PUD prophylaxis: Pantoprazole DVT prophylaxis: Lovenox Plan discussed with Dr. Murphy , nursing staff, Total time spent on patient evaluation, chart review, assessment and plan, discussion discussion >35 minutes Plan discussed with: Patient, Other (RN) My Orders My Orders Orders - ELDON CORRALES Procedure Category Date Status Time Vancomycin Per [facility] 08/26/25 In Process Pharmacy 15:45 Azithromycin 500mg/ [facility] 08/27/25 In Process 250ml (Zithromax 50 10:00 Date of Service: Aug 27, 2025 Billing Provider: ELDON CORRALES Common Visit Codes: [id number] INP/OBS CARE(HIGH) ELDON CORRALES Aug 27, 2025 09:58 NAOMI MURPHY MD Sep 10, 2025 20:44
--- NOTE | 2025-08-27 10:15 | DVHSR ---
APPROVED REPORT EXAM: Two-dimensional and M-mode echocardiogram with Doppler and color Doppler. Blood Pressure: 110/64 mmHg INDICATION CHF DIMENSIONS LVDd5.2 (3.8-5.7cm)LA (2D)4.3 (1.9-4.0cm)Aortic Root3.4 (2.0-3.7cm) LVDs3.3 (2.5-4.0cm)LA (MM) (1.9-4.0cm)Aortic Cusp Exc1.9 (1.5-2.0cm) EF (%) 67.0 (55-70%)Rt. Atrium4.0 (1.9-4.0cm)Asc. Aorta cm Mitral Valve MitralMitral Stenosis E wave0.50m/sMV Mean GR.mmHg A wave0.88m/sMV Peak GR.mmHg E/A ratio0.62D MVAcm2 DECEL [id number] 1/2 Timems Aortic Valve Aortic ValveAortic Stenosis V10.90m/Ramy Mean GR.6mmHg V21.83m/Ramy Peak GR.13mmHg LVOT Diameter2.2 (1.8-2.4cm)Doppler AVA1.87cm2 Pulmonic Valve V20.86m/s Tricuspid Valve TR Velocity2.85m/s [id number] Conclusion MILD LVH AND MILD LV DIASTOLIC DYSFUNCTION MODERATELY DILATED RV AND RA MILD PULMONARY HYPERTENSION RVSP IS 42 MM OF HG AND IS HIGH NORMAL VALVES NO EFFUSION
[2025-08-27] MEDS: AZITHROMYCIN 500MG/ 250ML 250 ML IV SCH (10:32)
[2025-08-28] VITALS (16 sets, daily range): BP systolic 104–151; BP diastolic 55–87; PULSE 91–113; RESP 17–24; TEMP 97.4–98.2; O2SAT 93–100
[2025-08-28 06:44] LABS: Hematocrit 44.6 % (41.0-53.0); Hemoglobin 14.3 g/dL (13.5-17.5); Mean Corpuscular Hemoglobin 27.4 pg (28.0-32.0); Mean Corpuscular Volume 85.4 fL (80.0-100.0); Nucleated Red Blood Cells % 0.0 %
[2025-08-28 07:08] LABS: Alanine Aminotransferase 21 U/L (7-40); Albumin 3.8 g/dL (3.2-4.8); Alkaline Phosphatase 72 U/L (46-116); Anion Gap 9 (5-15); BUN/Creatinine Ratio 23.9 (10.0-20.0); Bilirubin, Total 0.4 mg/dL (0.2-1.0); Blood Urea Nitrogen 27 mg/dL (9-23); Calcium 9.4 mg/dL (8.7-10.4); Carbon Dioxide 34 mmol/L (20-31); Chloride 94 mmol/L (98-107); Glucose 123 mg/dL (74-106); Magnesium 2.3 mg/dL (1.6-2.6); Potassium 4.1 mmol/L (3.5-5.1); Sodium 137 mmol/L (136-145); Total Protein 7.3 g/dL (5.7-8.2)
--- NOTE | 2025-08-28 08:05 | ECG ---
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
--- NOTE | 2025-08-28 09:38 | ECG ---
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
[2025-08-28] MEDS: VANCOMYCIN 750MG KIT 100 ML IV SCH (11:34)
[2025-08-28] MEDS: predniSONE 20 MG TAB PO SCH (11:35)
--- NOTE | 2025-08-28 12:22 | DVHDSRES ---
Discharge Summary Date of Admission Resident Creating Document: ELDON CORRALES RESIDENT Aug 25, 2025 at 20:47 Date of Discharge: Aug 28, 2025 Admitting Diagnosis Sepsis likely due to pneumonia Gram-positive versus Gram-negative Acute exacerbation of COPD likely due to Labs/Diagnostic Data: Laboratory Results Test 08/28/25 05:38 08/26/25 06:47 08/26/25 00:46 08/25/25 22:55 White Blood Count 10.6 10^3/uL (4.4-10.8) Red Blood Count 5.22 10^6/uL (4.5-5.90) Hemoglobin 14.3 g/dL (13.5-17.5) Hematocrit 44.6 % (41.0-53.0) Mean Corpuscular Volume 85.4 fL (80.0-100.0) Mean Corpuscular Hemoglobin 27.4 pg (28.0-32.0) Mean Corpuscular Hemoglobin Concent 32.1 g/dL (32.0-36.0) Red Cell Distribution Width 16.3 % (11.8-14.3) Platelet Count 254 10^3/uL (140-450) Mean Platelet Volume 9.0 fL (6.9-10.8) Neutrophils (%) (Auto) 85.5 % (37.0-80.0) Lymphocytes (%) (Auto) 7.8 % (10.0-50.0) Monocytes (%) (Auto) 6.7 % (0.0-12.0) Eosinophils (%) (Auto) 0.0 % (0.0-7.0) Basophils (%) (Auto) 0.0 % (0.0-2.0) Neutrophils # (Auto) 9.1 10 ^3/uL (1.6-8.6) Lymphocytes # (Auto) 0.8 10 ^3/uL (0.4-5.4) Monocytes # (Auto) 0.7 10 ^3/uL (0-1.3) Eosinophils # (Auto) 0 10 ^3/uL (0-0.8) Basophils # (Auto) 0 10 ^3/uL (0-0.2) Nucleated Red Blood Cells 0.0 % Sodium Level 137 mmol/L (136-145) Potassium Level 4.1 mmol/L (3.5-5.1) Chloride Level 94 mmol/L (98-107) Carbon Dioxide Level 34 mmol/L (20-31) Anion Gap 9 (5-15) Blood Urea Nitrogen 27 mg/dL (9-23) Creatinine 1.13 mg/dL (0.700-1.30) Glomerular Filtration Rate Calc 73 mL/min (>90) BUN/Creatinine Ratio 23.9 (10.0-20.0) Serum Glucose 123 mg/dL (74-106) Calcium Level 9.4 mg/dL (8.7-10.4) Magnesium Level 2.3 mg/dL (1.6-2.6) Total Bilirubin 0.4 mg/dL (0.2-1.0) Aspartate Amino Transferase (AST) 26 U/L (13-40) Alanine Aminotransferase (ALT) 21 U/L (7-40) Alkaline Phosphatase 72 U/L (46-116) Total Protein 7.3 g/dL (5.7-8.2) Albumin 3.8 g/dL (3.2-4.8) Random Vancomycin Level 7.2 ug/mL (5-10) Urine Color Yellow (Yellow) Urine Clarity Clear (Clear) Urine pH 5.0 (5.0-9.0) Urine Specific Almo 1.019 (1.001-1.035) Urine Protein Trace (Negative) Urine Ketones 1+ (Negative) Urine Blood Negative /uL (Negative) Urine Nitrite Negative (Negative) Urine Bilirubin Negative (Negative) Urine Urobilinogen 2 mg/dL (Negative) Urine Leukocyte Esterase Negative /uL (Negative) Urine RBC 2 /hpf (0 - 3) Urine Microscopic WBC < 1 /HPF (0-3) Urine Squamous Epithelial Cells Few /hpf (<5) Urine Bacteria None seen /hpf (None Seen) Urine Glucose Normal mg/dL (Normal) Urine Opiates Screen Neg (NEGATIVE) Urine Fentanyl Screen Neg (NEGATIVE) Urine Barbiturates Screen Neg (NEGATIVE) Urine Phencyclidine Screen Neg (NEGATIVE) Urine Amphetamines Screen Neg (NEGATIVE) Urine Benzodiazepines Screen Neg (NEGATIVE) Urine Cocaine Screen Neg (NEGATIVE) Urine Cannabinoids Screen Neg (NEGATIVE) Influenza Type A Antigen Negative (Negative) Influenza Type B Antigen Negative (Negative) SARS-CoV-2 Antigen (Rapid) Negative (NEGATIVE) Blood Gas Specimen Type Arterial Blood Gas Sample Site Right radial Blood Gas Patient Temperature 37.0 Arterial Blood Date Drawn [id number] Arterial Blood pH 7.378 (7.350-7.450) Arterial Blood Partial Pressure CO2 45.2 mmHg (35.0-48.0) Arterial Blood Partial Pressure O2 103.0 mmHg (83.0-108.0) Arterial Blood HCO3 26.0 mmol/L (21.0-28.0) Arterial Blood Oxygen Saturation 98.1 % (94.0-98.0) Arterial Blood Base Excess 0.4 mmol/L (-2.0-3.0) Arterial Blood Oxyhemoglobin 96.3 % (94.0-98.0) Arterial Blood Carboxyhemoglobin 1.3 % (0.5-1.5) Arterial Blood Methemoglobin 0.5 % (0.0-1.5) Emiliano Test Yes Blood Gas Total Hemoglobin 16.80 g/dL (13.5-17.5) Blood Gas Modality Room air FiO2 % 21.0 Test 08/25/25 22:30 08/25/25 16:59 08/25/25 16:00 08/25/25 15:43 Prothrombin Time 11.9 sec (9.3-11.8) Prothrombin Time INR 1.14 (0.9-1.15) Activated Partial Thromboplast Time 30.4 SEC (24.5-34.5) Hemoglobin A1c 5.5 % A1C (<5.7) Phosphorus Level 2.7 mg/dL (2.4-5.1) Troponin I High Sensitivity 8 ng/L (</=54) C-Reactive Protein High Sensitivity 12.95 mg/dL (<1.0) Triglycerides Level 103 mg/dL (< 150) Cholesterol Level 169 mg/dL (< 200) LDL Cholesterol 101 mg/dL (< 100) HDL Cholesterol 51 mg/dL (40-59) Lipase 32 U/L (12-53) Thyroid Stimulating Hormone (TSH) 0.75 uIU/mL (0.55-4.78) Lactic Acid Level 1.1 mmol/L (0.4-2.0) B-Type Natriuretic Peptide 43.61 pg/mL (0-100) Vitamin B12 Level 981 pg/mL (211-911) Vitamin D 25-Hydroxy 14.1 ng/mL (30.0-100) Other Laboratory Tests 08/28/25 05:38 Brief Hx & Hospital Course: This is a 65-year-old male with past medical history non-Hodgkin lymphoma in remission, hypertension, hyperlipidemia, COPD, asthma, GERD, presented to the ER with chief complain of chest pain and shortness of breaths. Patient reports that the chest pain and shortness of breaths started yesterday, pain is described as tightness in the substernal area, 10/10, radiating to left arm. Patient has worsening difficulty in breathing, since yesterday he has shortness of breaths while resting. He complains of associated fever, chills, cough with productive yellow sputum. He also complains of headache, nausea and has vomited 1 time, vomitus had food content. Lab workup revealed leukocytosis with WBC 18.9, UDS negative, urinalysis negative for UTI. COVID and flu negative. Chest x-ray bilateral lower lung haziness. Patient is treated with a ceftriaxone, azithromycin and vancomycin. MRSA nares was positive. Blood culture 1 sample was positive for Staphylococcus epidermidis likely contaminated. Patient's symptoms improved. Patient is being discharged home with Keflex 500 mg p.o. b.i.d. for 5 days and prednisolone 40 mg p.o. daily for 5 days. Patient was advised to follow up with the primary care physician in 2 weeks, also to follow up in discharge clinic in 2 weeks. Patient's meds were sent to the pharmacy electronically. Patient was hemodynamically stable on discharge. Operations or Procedures [place] [id number] Ph: [phone] DIAGNOSTIC IMAGING Diagnostic Imaging Report : [id number] Signed PATIENT: SHERRON CHAMPAGNE ACCT: [id number] UNIT: [id number] : 1960 LOC: ER ROOM / BED: / AGE / SEX: 65 / M ADM STATUS: REG ER SERVICE [id number] ORDERING PHYSICIAN: JACINTO DUBON MD PROCEDURE(s): CXRP - CHEST PORTABLE REASON: sob ORDER NUMBER(s): [id number], ACCESSION NUMBER(s): [id number] CHEST RADIOGRAPH Indication: sob Technique: Single frontal view of the chest was obtained Comparison: CHEST PORTABLE on DOS: 07/07/22, CXRP on DOS: 07/07/22 FINDINGS: Lines and Tubes: None Lungs: No focal consolidation. Prominence of the central interstitial there are findings of bibasilar interstitial prominence atelectasis Pleura: No effusion. No pneumothorax. Cardiomediastinal contours: Unremarkable Bones: No acute osseous abnormality. IMPRESSION: 1. Minimal change from 07/07/2022 with persistent interstitial prominence. ATED BY: ARNOL JUAREZ Jr., DO DICTATED DATE/TIME: 08/25/251656 SIGNED BY: ARNOL JUAREZ Jr., SIGNED DATE/TIME: 08/25/251656 CC: Condition at Discharge: Stable Final Diagnosis/Problems List #Sepsis due to Gram-positive, Gram-negative pneumonia #Acute on chronic hypoxic respiratory failure likely due to above with mild hypoxemia #Acute COPD exacerbation likely due to pneumonia #Chest pain likely due to PNA # ruled out acute heart failure #Obesity class 2 #Hypertension #Hyperlipidemia #History of GERD #Non-Hodgkin's lymphoma in remission Discharge Disposition: Home Discharge Instruct/Medications Activity: No Restrictions, As Tolerated Follow Up/Referral: Please follow up at discharge clinic as per schedule in 2 weeks Please follow up with the primary care physician in 2 weeks Medications: keflex 500 mg po bid for 5 days Prednisone 40 mg for 5 days Please resume other home medication Scheduled Cephalexin (Keflex Capsule), 2 CAP PO BID Oseltamivir Phosphate (Tamiflu), 1 CAP PO BID Prednisone (Prednisone), 40 MG PO DAILY Scheduled PRN Albuterol Sulfate (Albuterol Sulfate Hfa), 108 MCG IN Q6HP PRN Discharge Statement: "Patient was advised to return to the ER or call 911 if any headaches, dizziness, shortness of breath, chest pain, abdominal pain, bleeding, fevers, or worsening of medical condition. Patient was counseled about treatment plan, medications, possible side effects, patientverbalized understanding. All questions were answered to the best of my ability. This discharge took greater then 30 minutes in planning, reviewing documentation, counseling the patient, and discussing with other team members." ASSESSMENT ASSESSMENT Assessment Date of Service: Aug 28, 2025 Billing Provider: NAOMI MURPHY MD Common Visit Codes: 41486-LSI/OBS DISCH DAY >30min ELDON CORRALES Aug 28, 2025 12:22 NAOMI MURPHY MD Sep 10, 2025 19:57
[2025-08-28] MEDS ORDERED: PRED20TA2 PO (13:02)
[2025-08-28] MEDS ORDERED: CEPH250C PO (13:02)
[2025-08-28] MEDS ORDERED: ALBU108A5 IN (13:05)
== END 2025-08-28 21:10 | disposition home or self-care (01) | DRG 720 ==
LOC: ER 15:22 → OVERFLOW 20:47 → TELE-CENTR 08-26 18:10
PROVIDERS: ADMIT Student in an Organized Health Care Education/Training Program; ATTEND Student in an Organized Health Care Education/Training Program
DX: A41.59 Other Gram-negative sepsis (principal); J96.21 Acute and chronic respiratory failure with hypoxia; J15.69 Pneumonia due to other Gram-negative bacteria; J15.9 Unspecified bacterial pneumonia; C85.9A Non-Hodgkin lymphoma, unspecified, in remission; K21.9 Gastro-esophageal reflux disease without esophagitis; J44.0 Chronic obstructive pulmonary disease with (acute) lower respiratory infection; Z20.822 Contact with and (suspected) exposure to COVID-19; J44.1 Chronic obstructive pulmonary disease with (acute) exacerbation; E66.812 Obesity, class 2; I10 Essential (primary) hypertension; Z68.36 Body mass index [BMI] 36.0-36.9, adult; E78.5 Hyperlipidemia, unspecified; Z82.49 Family history of ischemic heart disease and other diseases of the circulatory system; Z83.3 Family history of diabetes mellitus; Z79.899 Other long term (current) drug therapy; Z90.49 Acquired absence of other specified parts of digestive tract
CPT/HCPCS: 36415; 36600; 71045; 80048; 80053; 80061; 80202; 80307; 81001; 82306; 82607; 82805; 83036; 83605; 83690; 83735; 83880; 84100; 84443; 84484; 85025; 85610; 85730; 86141; 87040; 87077; 87086; 87186; 87426; 87804; 93005; 93306; 94640; 99291; G0378; J2470